=== PATIENT | female | born 1965 | race African-American/Black ===

== ENCOUNTER 2021-11-26 08:45 | Inpatient (IN) | payer OTHER ==
[2021-11-26] MEDS ORDERED: BISMUTH SUBSALICYLATE 262 MG/15 ML BTL PO PRN (10:20)
[2021-11-26] MEDS ORDERED: chlordiazePOXIDE HCL 25 MG CAPSULE PO PRN (10:20)
[2021-11-26] MEDS ORDERED: ONDANSETRON *ODT* 4 MG TABLET SL PRN (10:20)
[2021-11-26] MEDS ORDERED: NICOTINE 10 MG CARTRIDGE (INHALER) IH PRN (10:20)
[2021-11-26] MEDS ORDERED: MAGNESIUM CITRATE 300 ML BOTTLE PO PRN (10:20)
[2021-11-26] MEDS ORDERED: DICYCLOMINE HCL 10 MG CAPSULE PO PRN (10:20)
[2021-11-26] MEDS ORDERED: MAG HYDROX/AL HYDROX/SIMETH 30 ML UNIT-DOSE CUP PO PRN (10:20)
[2021-11-26] MEDS ORDERED: ACETAMINOPHEN 325 MG TABLET (FP) PO PRN ×2 (10:20)
[2021-11-26] MEDS ORDERED: MAGNESIUM HYDROX 2400MG/30ML ORAL SUSPENSION 30 ML CUP PO PRN (10:20)
[2021-11-26] MEDS ORDERED: MENTHOL/PHENOL 1 EACH UD MM PRN (10:20)
[2021-11-26] MEDS ORDERED: LOPERAMIDE HCL 2 MG CAPSULE PO PRN (10:20)
[2021-11-26] MEDS ORDERED: HYDROCHLOROTHIAZIDE 25 MG TABLET (FP) PO ONE (10:29)
[2021-11-26 10:57] VITALS: BMI 42.9
[2021-11-26] MEDS ORDERED: chlordiazePOXIDE HCL 25 MG CAPSULE ONE (11:42)
[2021-11-26] MEDS: chlordiazePOXIDE HCL 25 MG CAPSULE PO SCH ×3 (11:44→22:30)
[2021-11-26] MEDS: NICOTINE 14 MG/24 HOURS TOPICAL PATCH TD SCH (12:15)
[2021-11-26] MEDS: PRENATAL VITAMINS W/ FOLIC ACID TABLET (FP) PO SCH (12:15)
[2021-11-26] MEDS: amLODIPine BESYLATE 10 MG TABLET (FP) PO SCH (12:15)
[2021-11-26] MEDS: IBUPROFEN 400 MG TABLET (FP) PO PRN (12:16)
[2021-11-26] MEDS: hydrOXYzine PAMOATE 25 MG CAPSULE (FP) PO SCH ×3 (14:04→22:29)
[2021-11-26 15:16] LABS: HEMATOCRIT 44.5 % (32.4-45.2); HEMOGLOBIN 14.8 GM/dL (10.7-15.3); MCH 31.3 pg (25.7-33.7); MCHC 33.2 g/dl (32.0-36.0); MEAN CELL VOLUME 94.4 fl (80-96); PLATELET COUNT 177 10^3/uL (134-434); RBC 4.71 M/mm3 (3.60-5.2); WHITE BLOOD COUNT 5.5 K/mm3 (4.0-10.0)
[2021-11-26 15:29] LABS: ALBUMIN 4.2 g/dl (3.4-5.0); BLOOD UREA NITROGEN 10.8 mg/dL (7-18); CALCIUM 9.2 mg/dL (8.5-10.1)
[2021-11-26 15:33] LABS: BILIRUBIN,TOTAL 0.3 mg/dL (0.2-1); TOT PROT 8.3 g/dl (6.4-8.2)
[2021-11-26] MEDS: metFORMIN HCL 500 MG TABLET (FP) PO SCH (17:00)
[2021-11-26] MEDS: INSULIN SLIDING SCALE (NOVOLOG) 1 VIAL SQ SCH (17:00)
[2021-11-26] MEDS ORDERED: INSULIN (NOVOLOG) ASPART 100 UNITS/ML 10ML VIAL ONE (17:04)
[2021-11-26] MEDS: MELATONIN 5 MG TABLETS PO SCH (22:29)
[2021-11-26] MEDS: THIAMINE HCL 100 MG TABLET (FP) PO SCH (22:29)
[2021-11-26] MEDS: ATORVASTATIN CA 20 MG TABLET (FP) PO SCH (22:29)
[2021-11-26] MEDS: traZODone HCL 50 MG TABLET (FP) PO SCH (22:30)
[2021-11-27] MEDS: chlordiazePOXIDE HCL 25 MG CAPSULE PO SCH ×4 (05:37→22:30)
[2021-11-27] MEDS: hydrOXYzine PAMOATE 25 MG CAPSULE (FP) PO SCH ×5 (05:37→22:29)
[2021-11-27] MEDS ORDERED: INSULIN (NOVOLOG) ASPART 100 UNITS/ML 10ML VIAL ONE ×2 (05:40→16:46)
[2021-11-27] MEDS: metFORMIN HCL 500 MG TABLET (FP) PO SCH ×2 (08:20→17:54)
[2021-11-27] MEDS: INSULIN SLIDING SCALE (NOVOLOG) 1 VIAL SQ SCH ×2 (08:21→17:54)
[2021-11-27] MEDS: PRENATAL VITAMINS W/ FOLIC ACID TABLET (FP) PO SCH (10:49)
[2021-11-27] MEDS: NICOTINE 14 MG/24 HOURS TOPICAL PATCH TD SCH (10:50)
[2021-11-27] MEDS: amLODIPine BESYLATE 10 MG TABLET (FP) PO SCH (10:50)
[2021-11-27] MEDS: THIAMINE HCL 100 MG TABLET (FP) PO SCH (22:29)
[2021-11-27] MEDS: MELATONIN 5 MG TABLETS PO SCH (22:29)
[2021-11-27] MEDS: traZODone HCL 50 MG TABLET (FP) PO SCH (22:30)
[2021-11-27] MEDS: ATORVASTATIN CA 20 MG TABLET (FP) PO SCH (22:30)
[2021-11-28] MEDS: chlordiazePOXIDE HCL 25 MG CAPSULE PO SCH ×4 (05:44→22:32)
[2021-11-28] MEDS: hydrOXYzine PAMOATE 25 MG CAPSULE (FP) PO SCH ×5 (05:44→22:32)
[2021-11-28] MEDS: metFORMIN HCL 500 MG TABLET (FP) PO SCH ×2 (06:10→17:58)
[2021-11-28] MEDS ORDERED: INSULIN (NOVOLOG) ASPART 100 UNITS/ML 10ML VIAL ONE (07:27)
[2021-11-28] MEDS: INSULIN SLIDING SCALE (NOVOLOG) 1 VIAL SQ SCH ×2 (07:32→16:57)
[2021-11-28] MEDS: METHOCARBAMOL 500 MG TABLET PO PRN (10:09)
[2021-11-28] MEDS: amLODIPine BESYLATE 10 MG TABLET (FP) PO SCH (10:09)
[2021-11-28] MEDS: PRENATAL VITAMINS W/ FOLIC ACID TABLET (FP) PO SCH (10:09)
[2021-11-28] MEDS: IBUPROFEN 400 MG TABLET (FP) PO PRN ×2 (10:11→22:35)
[2021-11-28] MEDS: NICOTINE 14 MG/24 HOURS TOPICAL PATCH TD SCH (10:13)
[2021-11-28 18:08] LABS: SARS-CoV-2 NAA Not Detected (Not Detected)
[2021-11-28] MEDS: ATORVASTATIN CA 20 MG TABLET (FP) PO SCH (22:32)
[2021-11-28] MEDS: traZODone HCL 50 MG TABLET (FP) PO SCH (22:32)
[2021-11-28] MEDS: THIAMINE HCL 100 MG TABLET (FP) PO SCH (22:32)
[2021-11-28] MEDS: MELATONIN 5 MG TABLETS PO SCH (22:32)
[2021-11-29] MEDS ORDERED: chlordiazePOXIDE HCL 10 MG CAPSULE PO PRN
[2021-11-29] MEDS: hydrOXYzine PAMOATE 25 MG CAPSULE (FP) PO SCH ×5 (05:28→22:53)
[2021-11-29] MEDS: chlordiazePOXIDE HCL 10 MG CAPSULE PO SCH ×4 (05:28→22:52)
[2021-11-29] MEDS: metFORMIN HCL 500 MG TABLET (FP) PO SCH ×2 (07:36→18:06)
[2021-11-29] MEDS: INSULIN SLIDING SCALE (NOVOLOG) 1 VIAL SQ SCH ×2 (07:37→17:23)
[2021-11-29] MEDS: PRENATAL VITAMINS W/ FOLIC ACID TABLET (FP) PO SCH (10:20)
[2021-11-29] MEDS: amLODIPine BESYLATE 10 MG TABLET (FP) PO SCH (10:20)
[2021-11-29] MEDS: METHOCARBAMOL 500 MG TABLET PO PRN (10:21)
[2021-11-29] MEDS: IBUPROFEN 400 MG TABLET (FP) PO PRN (10:21)
[2021-11-29] MEDS: NICOTINE 14 MG/24 HOURS TOPICAL PATCH TD SCH (10:24)
[2021-11-29] MEDS ORDERED: INSULIN (NOVOLOG) ASPART 100 UNITS/ML 10ML VIAL ONE (17:11)
[2021-11-29] MEDS: THIAMINE HCL 100 MG TABLET (FP) PO SCH (22:52)
[2021-11-29] MEDS: traZODone HCL 50 MG TABLET (FP) PO SCH (22:52)
[2021-11-29] MEDS: MELATONIN 5 MG TABLETS PO SCH (22:52)
[2021-11-29] MEDS: ATORVASTATIN CA 20 MG TABLET (FP) PO SCH (22:52)
[2021-11-30] MEDS: hydrOXYzine PAMOATE 25 MG CAPSULE (FP) PO SCH ×5 (05:47→22:07)
[2021-11-30] MEDS: chlordiazePOXIDE HCL 10 MG CAPSULE PO SCH ×2 (05:47→17:33)
[2021-11-30] MEDS: INSULIN SLIDING SCALE (NOVOLOG) 1 VIAL SQ SCH ×2 (07:44→17:33)
[2021-11-30] MEDS: metFORMIN HCL 500 MG TABLET (FP) PO SCH ×2 (07:44→17:33)
[2021-11-30] MEDS ORDERED: INSULIN (NOVOLOG) ASPART 100 UNITS/ML 10ML VIAL ONE ×2 (07:46→17:15)
[2021-11-30] MEDS: PRENATAL VITAMINS W/ FOLIC ACID TABLET (FP) PO SCH (10:05)
[2021-11-30] MEDS: amLODIPine BESYLATE 10 MG TABLET (FP) PO SCH (10:05)
[2021-11-30] MEDS: METHOCARBAMOL 500 MG TABLET PO PRN (10:05)
[2021-11-30] MEDS: IBUPROFEN 400 MG TABLET (FP) PO PRN (10:06)
[2021-11-30] MEDS: NICOTINE 14 MG/24 HOURS TOPICAL PATCH TD SCH (10:07)
[2021-11-30] MEDS: traZODone HCL 50 MG TABLET (FP) PO SCH (22:06)
[2021-11-30] MEDS: MELATONIN 5 MG TABLETS PO SCH (22:07)
[2021-11-30] MEDS: ATORVASTATIN CA 20 MG TABLET (FP) PO SCH (22:07)
[2021-11-30] MEDS: THIAMINE HCL 100 MG TABLET (FP) PO SCH (22:07)
[2021-12-01] MEDS ORDERED: chlordiazePOXIDE HCL 10 MG CAPSULE PO ONE (05:00)
[2021-12-01] MEDS: metFORMIN HCL 500 MG TABLET (FP) PO SCH (06:05)
[2021-12-01] MEDS: hydrOXYzine PAMOATE 25 MG CAPSULE (FP) PO SCH ×2 (06:06→10:16)
[2021-12-01] MEDS: INSULIN SLIDING SCALE (NOVOLOG) 1 VIAL SQ SCH (08:22)
[2021-12-01 09:32] VITALS: BP 140/87; PULSE 77; TEMP 97.2
[2021-12-01] MEDS: PRENATAL VITAMINS W/ FOLIC ACID TABLET (FP) PO SCH (10:16)
[2021-12-01] MEDS: NICOTINE 14 MG/24 HOURS TOPICAL PATCH TD SCH (10:17)
[2021-12-01] MEDS: amLODIPine BESYLATE 10 MG TABLET (FP) PO SCH (11:45)
== END 2021-12-01 10:25 | disposition home or self-care (01) | DRG 774 ==
LOC: YASAS 08:45 → Y6N 11:16
PROVIDERS: ADMIT Allergy & Immunology; ATTEND Allergy & Immunology
PROC: HZ2ZZZZ Detoxification Services for Substance Abuse Treatment (ICD-10-PCS; principal; 2021-11-26)
DX: F10.230 Alcohol dependence with withdrawal, uncomplicated (principal); F14.20 Cocaine dependence, uncomplicated; F12.10 Cannabis abuse, uncomplicated; F17.210 Nicotine dependence, cigarettes, uncomplicated; F33.2 Major depressive disorder, recurrent severe without psychotic features; F10.280 Alcohol dependence with alcohol-induced anxiety disorder; F10.282 Alcohol dependence with alcohol-induced sleep disorder; F10.24 Alcohol dependence with alcohol-induced mood disorder; F34.1 Dysthymic disorder; I10 Essential (primary) hypertension; E78.1 Pure hyperglyceridemia; E11.9 Type 2 diabetes mellitus without complications; Z79.84 Long term (current) use of oral hypoglycemic drugs; E66.01 Morbid (severe) obesity due to excess calories; Z68.41 Body mass index [BMI] 40.0-44.9, adult; Z91.51 Personal history of suicidal behavior; Z88.0 Allergy status to penicillin
CPT/HCPCS: 36415; 71046-TC-FY; 80053; 81025; 82962; 85027; 86780; 87811; 93005; 93010; C9803-CS; U0003; U0005